=== PATIENT | female | born 1965 | race Caucasian/White ===

== ENCOUNTER 2025-01-11 15:45 | Outpatient (REF) | payer BC, SELFPAY ==
[2025-01-11 12:55] LABS: Abs Immature Grans 0.01 10^3/uL (0.0-0.06); HCT 42.9 % (36.0-46.0); HGB 13.7 g/dL (11.2-15.7); Immature Grans % 0.3 %; MCH 29.4 pg (27.0-33.0); MCHC 31.9 % (32.0-36.0); MCV 92 fL (80-95); MPV 10.0 fL (8.0-11.0); Platelet Count 179 10^3/uL (130-400); RBC 4.66 10^6/uL (3.93-5.22); RDW 12.7 % (11.7-14.6); RDW-SD 42.6 fL; WBC 3.23 10^3/uL (4.4-10.8)
[2025-01-11 12:58] LABS: ESR 14 mm/hr (0-30)
[2025-01-11 13:02] LABS: ALT 49 U/L (14-59); AST 56 U/L (15-37); Albumin 3.7 g/dL (3.4-5.0); Alkaline Phosphatase 152 U/L (46-116); Anion Gap 7.5 mmol/L (3-11); BUN 16 mg/dL (7-18); Bilirubin, Total 0.3 mg/dL (0.2-1.0); CO2 29.5 mmol/L (21.0-32.0); Calcium 9.2 mg/dL (8.5-10.1); Chloride 101 mmol/L (98-107); Estimated GFR 57.88 (mL/min/1.73m2); Glucose 99 mg/dL (74-106); Potassium 4.6 mmol/L (3.5-5.1); Sodium 138 mmol/L (136-145); Total Protein 7.2 g/dL (6.4-8.2)
[2025-01-11 23:16] LABS: CRP, High Sensitivity >15.00 mg/L (See Note)
[2025-01-14 10:25] LABS: Lyme Ab w Rflx to Lyme Confirm Negative (Negative)
[2025-01-15 01:01] LABS: B. miyamotoi PCR Negative (Negative); Babesia divergens/MO-1 Negative (Negative); Ehrlichia muris eauclairensis Negative (Negative)
== END 2025-01-11 15:46 | disposition home or self-care (01) ==
LOC: LBN 15:45
PROVIDERS: PCP Physician Assistant; Visit Provider Physician Assistant
DX: R50.9 Fever, unspecified
CPT/HCPCS: 80053; 85652; 86141; 87798; 85025; 86618